=== PATIENT | female | born 1945 | race Caucasian/White ===

== ENCOUNTER 2018-09-27 05:55 | Day surgery (SDC) | payer OTHER ==
[~2018-09-27] VITALS: Ht 157.5 cm; Wt 65.8 kg
[2018-09-27] MEDS ORDERED: ROCURONIUM BROMIDE 10 MG/ML (ZEMURON) IV ONE (08:00)
[2018-09-27] MEDS ORDERED: fentaNYL CITRATE/PF 100 MCG/2 ML AMP IVP ONE (08:00)
[2018-09-27] MEDS ORDERED: MIDAZOLAM HCL 5 MG/5 ML VIAL IVP ONE (08:00)
[2018-09-27] MEDS ORDERED: ONDANSETRON HCL 4 MG/2 ML VIAL IVP ONE (08:00)
[2018-09-27] MEDS ORDERED: GLYCOPYRROLATE 0.2 MG/ML VIAL IJ ONE (08:00)
[2018-09-27] MEDS ORDERED: WATER FOR IRRIGATION,STERILE 1,000 ML IRRIG.SOLN IR ONE (08:00)
[2018-09-27] MEDS ORDERED: PROPOFOL 200MG/ 20ML VIAL (DIPRIVAN) IV ONE (08:00)
[2018-09-27] MEDS ORDERED: LIDOCAINE/EPI 1% 1:100000 20 ML VIAL INJ ONE (08:00)
[2018-09-27] MEDS ORDERED: PHENYLEPHRINE HCL 10 MG/ML VIAL (NEOSYNEPHRINE) IV ONE (08:00)
[2018-09-27] MEDS ORDERED: CEFAZOLIN 2 GM IVPB PREMIX 50 ML IV ONE (08:00)
[2018-09-27] MEDS ORDERED: LR 1,000 ML IV.SOLN IV ONE (08:00)
[2018-09-27] MEDS ORDERED: SEVOFLURANE 15 MIN GAS INH ONE (08:00)
[2018-09-27] MEDS ORDERED: fentaNYL CITRATE/PF 100 MCG/2 ML AMP IVP PRN ×2 (08:45)
[2018-09-27] MEDS ORDERED: ONDANSETRON HCL 4 MG/2 ML VIAL IVP PRN ×2 (08:45→11:45)
[2018-09-27] MEDS ORDERED: ONDANSETRON 4 MG ODT TAB PO PRN (11:45)
[2018-09-27] MEDS ORDERED: HYDROcodone/ACETAMIN 5-325 MG TAB (NORCO/ VICODIN) PO PRN (11:45)
[2018-09-27] MEDS ORDERED: GLUXR500 PO (15:03)
[2018-09-27] MEDS ORDERED: GLU500 PO (15:05)
[2018-09-27] MEDS ORDERED: GABA-533 PO (15:07)
[2018-09-27] MEDS ORDERED: GLIP2.5T3 PO (15:07)
[2018-09-27] MEDS ORDERED: LISI1TAB9 PO (15:08)
[2018-09-27] MEDS ORDERED: CARV25TA55 PO (15:08)
[2018-09-27] MEDS ORDERED: FENO160 PO (15:09)
[2018-09-27] MEDS ORDERED: LIP20 PO (15:09)
[2018-09-27 15:34] VITALS: BP_SYST 164
[2018-09-27] MEDS ORDERED: CARVEDILOL 25 MG TABLET (COREG) PO ONE (16:45)
[2018-09-27] MEDS: metFORMIN HCL 500 MG TABLET PO SCH (17:03)
[2018-09-27 18:15] VITALS: BP_SYST 151
[2018-09-27 20:35] VITALS: BP_SYST 157
[2018-09-27] MEDS: CARVEDILOL 25 MG TABLET (COREG) PO SCH (21:00)
[2018-09-27] MEDS ORDERED: ATORVASTATIN 20 MG TABLET PO SCH (21:00)
[2018-09-27] MEDS: GABAPENTIN 400 MG CAPSULE PO SCH (21:08)
[2018-09-27] MEDS ORDERED: OXYMETAZOLINE HCL 0.05% NASAL SPRAY NS PRN (22:30)
[2018-09-27 23:22] VITALS: BP_SYST 161
[2018-09-28 00:15] VITALS: BP_SYST 156
[2018-09-28] MEDS: GABAPENTIN 400 MG CAPSULE PO SCH (08:28)
[2018-09-28] MEDS: CARVEDILOL 25 MG TABLET (COREG) PO SCH (08:29)
[2018-09-28] MEDS: metFORMIN HCL 500 MG TABLET PO SCH ×2 (08:29→12:20)
[2018-09-28 08:33] VITALS: BP_SYST 168
[2018-09-28] MEDS ORDERED: FENOFIBRATE 160 MG TABLET PO SCH (09:00)
[2018-09-28] MEDS ORDERED: glipiZIDE XL 2.5 MG/TAB (GLUCOTROL XL) PO SCH (09:00)
[2018-09-28 12:45] VITALS: BP_SYST 134
[2018-09-28 13:05] VITALS: BP_SYST 134
== END 2018-09-28 13:30 | disposition home or self-care (01) ==
LOC: SDS 05:55 → SMU 05:55 → SDS 09-28 13:30
PROVIDERS: ATTEND Otolaryngology
DX: E04.9 Nontoxic goiter, unspecified (principal); I10 Essential (primary) hypertension; Z98.890 Other specified postprocedural states; E78.5 Hyperlipidemia, unspecified; E11.40 Type 2 diabetes mellitus with diabetic neuropathy, unspecified; Z79.899 Other long term (current) drug therapy
CPT/HCPCS: 60220; 88307; C1782; J0690; J2250; J2370; J2405; J2704; J3010; J3490; J7120